=== PATIENT | female | born 1990 | race Two or more races ===

== ENCOUNTER 2019-10-19 06:03 | Day surgery (SDC) | payer OTHER ==
[2019-10-15 16:40] VITALS: BMI 34.4
[2019-10-15 17:39] LABS: Hemoglobin 15.8 g/dL (12.0-16.0); Mean Corpuscular HGB CONC 34.6 g/dL (32.0-36.0); Mean Corpuscular Hemoglobin 31.8 pg (27.0-31.0); Mean Corpuscular Volume 91.9 fL (78.0-98.0); Mean Platelet Volume 7.3 fL (7.4-10.4); Platelet Count 267 thou/uL (130-400); RBC Distribution Width 11.2 % (11.5-14.5); Red Blood Cell (RBC) Count 4.97 mill/uL (4.20-5.40); White Blood Cell (WBC) Count 6.2 thou/uL (4.8-10.8)
[2019-10-15 17:43] LABS: BHCG - Serum Negative (NEGATIVE); Pregs Control Background? CLEAR/WHITE (CLR/WHITE); Pregs Control Bar Appear? YES (CONTROL BAR)
[2019-10-16 16:51] LABS: SARS-CoV-2 MS2 Positive; SARS-CoV-2 N Gene Negative; SARS-CoV-2 S Gene Negative; SARS-CoV-2 orf1ab Negative
[2019-10-19] MEDS ORDERED: Gabapentin 300 MG CAP ONE (06:14)
[2019-10-19] MEDS ORDERED: CeleCOXIB 100 MG CAP ONE (06:14)
[2019-10-19] MEDS ORDERED: Famotidine/PF 20 mg/2ml Vial ONE (06:14)
[2019-10-19] MEDS ORDERED: Bupivacaine 0.25% HCL 30 ML VIAL ONE (06:48)
[2019-10-19] MEDS ORDERED: Lidocaine 1% w/Epinephrine 1:100K 20 ML VIAL ONE (06:48)
[2019-10-19] MEDS ORDERED: Fentanyl 100 MCG/2 ML VIAL ONE ×3 (06:55→10:50)
[2019-10-19] MEDS ORDERED: Midazolam HCl 2 mg/2 ml Vial ONE (07:22)
[2019-10-19] MEDS ORDERED: Ropivacaine 0.2% 550 ML 750 ML NERVE BLCK SCH (07:45)
[2019-10-19] MEDS ORDERED: Ropivacaine HCl/PF 750 ML in Premix Bag 1 BAG NERVE BLCK SCH (08:00)
[2019-10-19] MEDS ORDERED: PROPOFOL 200 MG/20 ML VIAL ONE (09:34)
[2019-10-19] MEDS ORDERED: Rocuronium Bromide 10 MG/ML (10ML VIAL) ONE (09:34)
[2019-10-19] MEDS ORDERED: Lidocaine 1% PF 5 ML VIAL ONE (09:34)
[2019-10-19] MEDS ORDERED: Succinylcholine Chloride 20 MG/ML 10 ml SYRINGE FS ONE (09:34)
[2019-10-19] MEDS ORDERED: Ondansetron PF 4 MG/2 ML Vial ONE (09:34)
[2019-10-19] MEDS ORDERED: Glycopyrrolate 0.2 MG/ML 5 ML SYRINGE ONE (09:34)
[2019-10-19] MEDS ORDERED: Dexamethasone 20 MG/5 ML VIAL ONE (09:34)
--- NOTE | 2019-10-19 10:23 | OP ---
DATE OF PROCEDURE: 10/19/2019 PREOPERATIVE DIAGNOSIS: Dysmenorrhea, identified smell. POSTOPERATIVE DIAGNOSIS: Dysmenorrhea, identified smell. PROCEDURES PERFORMED: Robotic-assisted total laparoscopic hysterectomy with bilateral salpingo-oophorectomy. BENEFIT SPECIALIST: Kalee Chappell PA-C COMPLICATIONS: None. ESTIMATED BLOOD LOSS: Less than 50 mL. ANESTHESIA: GETA. OPERATIVE FINDINGS: 1. Normal vaginal mucosa and cervix. 2. Normal-appearing uterus, tubes, and ovaries bilaterally with the exception of left paratubal cyst. 3. Filmy adhesions in the left lower quadrant of the bowel to adnexa and next to the pelvic sidewall. PROCEDURE IN DETAIL: The patient was taken back to the OR with IV fluids running. Once the patient was in the OR, they were placed in dorsal supine position. The patient was then went to sleep using general anesthesia. Once the patient was asleep, the patient was placed in low dorsal lithotomy position. The abdomen and vagina were prepped and draped in normal fashion for gynecologic laparoscopy. Surgeons were gowned and gloved. A time-out was performed. A Garcia catheter was placed into the bladder and drained approximately 150 mL of urine. The tip of the Garcia catheter was attached to a Sly syringe for bladder manipulation if needed during the case. An operative speculum was placed into the vagina. The anterior lip of the cervix was grasped with a single-tooth tenaculum and the uterus sounded to 6 cm. A Expanite manipulator was assembled with a 3.5-cm cup and a 6-cm tip and placed into the uterus and vagina in routine fashion. After the manipulator was then placed, surgeon's gloves were changed. Attention was turned to the laparoscopic portion of the case. Beginning at the supraumbilical fold, local anesthesia was injected underneath the skin. A 12-mm skin incision was made with a scalpel and a Veress needle was placed through the skin incision with the abdomen insufflated without difficulty. After the abdomen was insufflated, the Veress needle was removed and a 12-mm trocar was placed through this incision. The laparoscope was then placed through the trocar. The patient was placed in Trendelenburg position and the above findings noted. Using a similar technique, all 3 additional ports were placed under direct visualization with the right and left lower quadrant 8-mm ports and a right upper quadrant 11-mm port. With all 4 ports placed, the robot was docked to the patient's bedside and the instruments were entered through the left and right lower quadrant ports under direct visualization. Beginning on the patient's left side, the left fallopian tube was identified as well as the left ovary. They were noted to be encased in filmy adhesions. These adhesions between the adnexa to the pelvic sidewall and bowel were taken down with fine dissection using monopolar scissors. After pentecostalism of anatomy was completed, the left fallopian tube was elevated away from the pelvic sidewall, cauterized and transected away from the pelvic sidewall. The left ovary was cauterized and transected from the IP ligament with the tube and ovary now falling away towards the midline towards the uterus. The round ligament was then cauterized, transected, and dissected down towards the level of the uterine artery, dissecting the ligament into anterior and posterior leafs. The bladder was then backfilled, and with the bladder anatomy identified near the level of the cervix. The anterior leaf was taken down to create a bladder flap and dissected the bladder away from the planned colpotomy site. After this was completed, the uterine artery was further skeletonized, cauterized, and transected. Next, attention was turned to the right side. The right pelvic anatomy appeared within normal limits. In similar fashion, the right fallopian tube and ovary were dissected away from the pelvis. The right round ligament was cauterized, transected, and divided into anterior and posterior leafs. They were dissected down towards the level of the uterine artery. The bladder flap was completed by dissecting the vesicouterine fascia off the cervix and planned colpotomy site. After this was completed, the colpotomy was performed, beginning posteriorly with monopolar scissors and completing circumferentially. The uterus, fallopian tubes, and ovaries were then retracted into the vagina and remained there for pneumoperitoneum during the closure of the vaginal cuff. The vaginal cuff was copiously irrigated and any small areas of bleeding were controlled with bipolar cautery. Stratafix suture was placed into the abdomen and was used to close the vaginal cuff in 2 layers. Once the vagina was closed, the needle was removed. The vaginal cuff and surgical pedicles were copiously irrigated and suctioned dry. No areas of bleeding were noted. The ureters were identified and noted to vermiculate bilaterally. The pressure was dropped to 4 mmHg with no bleeding noted from the adnexal dissections or the vaginal cuff. Next, the ON-Q catheter tip was placed through the skin and down into the pelvis and it was primed with local, noted to be functioning well. The counts were correct. The instruments were removed from the abdomen. The gas was released. The supraumbilical incision was closed at the fascial layer with Vicryl suture. All 4 skin incisions were closed with Monocryl suture and dressed with Dermabond dressing. The vagina was inspected at the end of the case with no areas of active bleeding noted. The patient was cleaned, dried, taken out of lithotomy position, extubated, and transferred to the recovery room in good condition. Job ID: [id number]
[2019-10-19] MEDS ORDERED: Morphine 4 MG/ML VIAL SLOW IVP PRN (11:26)
[2019-10-19] MEDS ORDERED: Simethicone Chewable 80 MG TAB PO PRN (11:26)
[2019-10-19] MEDS ORDERED: diphenhydrAMINE 25 MG CAP PO PRN (11:26)
[2019-10-19] MEDS ORDERED: HYDROcodone/Acetaminophen 5/325 mg Tablet PO PRN ×2 (11:26)
[2019-10-19] MEDS ORDERED: Ondansetron PF 4 MG/2 ML Vial IVP PRN (11:26)
[2019-10-19] MEDS ORDERED: Sodium Chloride 0.9% 1,000 ML IV SCH (11:26)
[2019-10-19] MEDS ORDERED: Bisacodyl 10 MG SUPP PR PRN (11:26)
[2019-10-19] MEDS ORDERED: Promethazine HCl 25 MG/ML VIAL IM PRN (11:26)
[2019-10-19] MEDS ORDERED: Ibuprofen 800 MG TAB PO SCH (14:00)
[2019-10-19 14:27] VITALS: BP 133/76
[2019-10-19 14:32] VITALS: TEMP 97.8
[2019-10-19] MEDS ORDERED: Ondansetron ODT 4 MG TAB PO PRN (18:10)
== END 2019-10-19 18:30 | disposition home or self-care (01) ==
LOC: SDC 06:03 → 3SW 11:23 → MERGE 16:30 → SDC 18:30
PROVIDERS: ATTEND Obstetrics & Gynecology
PROC: 0UT24ZZ Resection of Bilateral Ovaries, Percutaneous Endoscopic Approach (ICD-10-PCS; principal; 2019-10-19)
PROC: 0UT94ZZ Resection of Uterus, Percutaneous Endoscopic Approach (ICD-10-PCS; principal; 2019-10-19)
PROC: 0UT74ZZ Resection of Bilateral Fallopian Tubes, Percutaneous Endoscopic Approach (ICD-10-PCS; principal; 2019-10-19)
DX: N72 Inflammatory disease of cervix uteri (principal); N94.6 Dysmenorrhea, unspecified; N73.6 Female pelvic peritoneal adhesions (postinfective); N94.3 Premenstrual tension syndrome; F64.0 Transsexualism; G89.18 Other acute postprocedural pain; F90.9 Attention-deficit hyperactivity disorder, unspecified type; F41.9 Anxiety disorder, unspecified; F31.9 Bipolar disorder, unspecified; Z87.891 Personal history of nicotine dependence; Z79.899 Other long term (current) drug therapy; Z91.018 Allergy to other foods; Z91.040 Latex allergy status; Z90.13 Acquired absence of bilateral breasts and nipples
CPT/HCPCS: 36415; 84703; 85027; 86850; 86900; 86901; 87635; 88307; J0690; J1100; J2001; J2250; J2270; J2405; J2704; J2795; J3010; Q0162; S0020; S0028; U0003